=== PATIENT | male | born 2005 | race Caucasian/White ===

== ENCOUNTER 2024-12-12 02:53 | Observation (INO) | payer BC ==
[2024-12-12] MEDS ORDERED: Ondansetron PF 4 MG/2 ML Vial ONE ×2 (03:20→16:05)
[2024-12-12] MEDS ORDERED: Ketorolac Tromethamine 30 MG (1 mL) VIAL ONE (03:20)
[2024-12-12 03:39] LABS: #Basophils 0.08 10x3/uL (0.0-0.2); #Eosinophils 0.26 10x3/uL (0.0-0.5); #Monocytes 1.34 10x3/uL (0.0-1.1); #Neutrophils 15.45 10x3/uL (1.5-8.4); %Basophils 0.4 % (0.0-2.0); %Eosinophils 1.3 % (0.0-6.0); %Lymphocytes 12.2 % (18.0-47.0); %Monocytes 6.8 % (0.0-10.0); %Neutrophils 78.9 % (40.0-75.0); Hematocrit 45.1 % (38.8-50.0); Hemoglobin 16.0 g/dL (13.5-17.5); Mean Corpuscular Hemoglobin 29.8 pg (27.0-33.0); Mean Corpuscular Volume 84.0 fL (81.2-95.1); Platelet Count 293 10x3/uL (150-450); Red Blood Cell (RBC) Count 5.37 10x6/uL (4.32-5.72); White Blood Cell (WBC) Count 19.58 10x3/uL (3.5-10.5)
[2024-12-12 04:00] LABS: ALT (SGPT) 55 U/L (Less than 45); AST (SGOT) 33 U/L (11-34); Albumin 4.9 g/dL (3.1-4.5); Alkaline Phosphatase 86 U/L (50-130); Anion Gap 16 mmol/L (10-20); BUN (Urea Nitrogen) 14 mg/dL (8.9-20.6); Bilirubin, Total 0.7 mg/dL (0.3-1.2); Calc. Creatinine Clearance 0 mL/min (70-130); Calcium 9.9 mg/dL (7.8-10.44); Carbon Dioxide 22 mmol/L (22-29); Chloride 105 mmol/L (98-107); Globulin 3.3 g/dL (2.4-3.5); Glucose 99 mg/dL (70-105); Lipase 16 U/L (8-78); Potassium 3.5 mmol/L (3.5-5.1); Sodium 139 mmol/L (136-145)
[2024-12-12] MEDS ORDERED: Ondansetron PF 4 MG/2 ML Vial IVP PRN (09:37)
[2024-12-12] MEDS ORDERED: Glucagon 1 MG/ML KIT IM PRN (09:37)
[2024-12-12] MEDS ORDERED: HYDROcodone/Acetaminophen 10/325 mg Tablet PO PRN (09:37)
[2024-12-12] MEDS ORDERED: Dextrose 50% Abboject 50 ML SYRINGE SLOW IVP PRN (09:37)
[2024-12-12 10:59] VITALS: BMI 26.5
[2024-12-12] MEDS ORDERED: D5 1/2 NS w/20 mEq KCL 1,000 ML ONE (11:04)
[2024-12-12] MEDS: D5 1/2 NS w/20 mEq KCL 1,000 ML IV SCH (11:13)
[2024-12-12] MEDS ORDERED: Ketorolac Tromethamine 30 MG (1 mL) VIAL IVP SCH (12:00)
[2024-12-12] MEDS ORDERED: Bupivacaine/Epinephrine 0.25% 30 ML VIAL ONE ×2 (13:24→14:16)
[2024-12-12] MEDS ORDERED: Iopamidol 300 61% 100 ML VIAL FS ONE (14:03)
[2024-12-12] MEDS ORDERED: PROPOFOL 20 ML ONE ×2 (16:05→16:10)
[2024-12-12] MEDS ORDERED: Rocuronium Bromide 10 MG/ML (10ML VIAL) ONE (16:05)
[2024-12-12] MEDS ORDERED: HYDROmorphone 0.5 MG/0.5 ML SYR SLOW IVP PRN (17:21)
[2024-12-12] MEDS ORDERED: HYDROmorphone 0.5 MG/0.5 ML SYRINGE ONE (17:31)
[2024-12-12] MEDS ORDERED: HYDROcodone/Acetaminophen 5/325 mg Tablet ONE (18:09)
== END 2024-12-12 18:40 | disposition home or self-care (01) ==
LOC: CSHERS 02:53 → INTOOBSV 04:35 → CSHERHOLD 04:35
PROVIDERS: ADMIT Surgery; ATTEND Surgery
PROC: 0DTJ4ZZ Resection of Appendix, Percutaneous Endoscopic Approach (ICD-10-PCS; principal; 2024-12-12)
DX: K35.80 Unspecified acute appendicitis (principal); F32.A Depression, unspecified; Z79.899 Other long term (current) drug therapy
CPT/HCPCS: 74177; 80053; 83690; 85025; 88304; 96375; A4649; G0378; J1100; J1171; J1885; J2250; J2405; J2543; J2704; J3010; J3480; Q9967